=== PATIENT | female | born 1995 | race Caucasian/White ===

== ENCOUNTER 2021-04-18 08:00 | Outpatient (CLI) | payer OTHER | END 2021-04-18 08:30 | disposition home or self-care (01) | LOC: PPH VACUNA 08:00 | PROVIDERS: ATTEND Emergency Medicine Pediatric Emergency Medicine | DX: Z23 Encounter for immunization (principal) ==

== ENCOUNTER 2021-05-25 08:14 | Emergency (ER) | payer OTHER ==
[~2021-05-25] VITALS: Ht 172.7 cm; Wt 59.0 kg
== END 2021-05-25 11:53 | disposition home or self-care (01) ==
LOC: ER 08:14
DX: B34.9 Viral infection, unspecified (principal); J45.998 Other asthma; Z20.822 Contact with and (suspected) exposure to COVID-19

== ENCOUNTER 2021-06-07 07:50 | Outpatient (CLI) | payer OTHER | END 2021-06-07 08:15 | disposition home or self-care (01) | LOC: PPH VACUNA 07:50 | PROVIDERS: ATTEND Emergency Medicine Pediatric Emergency Medicine | DX: Z23 Encounter for immunization (principal) ==

== ENCOUNTER 2021-10-16 13:02 | Emergency (ER) | payer OTHER ==
[~2021-10-16] VITALS: Ht 172.7 cm; Wt 63.5 kg
== END 2021-10-16 14:49 | disposition home or self-care (01) ==
LOC: ER 13:02
DX: Z77.21 Contact with and (suspected) exposure to potentially hazardous body fluids (principal); Z88.8 Allergy status to other drugs, medicaments and biological substances

== ENCOUNTER 2022-01-31 08:00 | Outpatient (CLI) | payer OTHER | END 2022-01-31 08:05 | disposition home or self-care (01) | LOC: PPH VACUNA 08:00 | PROVIDERS: ATTEND Emergency Medicine Pediatric Emergency Medicine | DX: Z23 Encounter for immunization (principal) ==

== ENCOUNTER 2022-02-09 07:51 | Outpatient (CLI) | payer OTHER | END 2022-02-09 09:14 | disposition home or self-care (01) | LOC: LAB 07:51 | DX: Z20.828 Contact with and (suspected) exposure to other viral communicable diseases (principal); Z03.818 Encounter for observation for suspected exposure to other biological agents ruled out; R06.02 Shortness of breath; R50.9 Fever, unspecified ==

== ENCOUNTER → 2022-06-27 | Outpatient (CLI) | payer OTHER | END | disposition home or self-care (01) | LOC: RAD 14:08 | DX: M99.01 Segmental and somatic dysfunction of cervical region (principal); M99.02 Segmental and somatic dysfunction of thoracic region; M99.03 Segmental and somatic dysfunction of lumbar region; M99.04 Segmental and somatic dysfunction of sacral region; M99.05 Segmental and somatic dysfunction of pelvic region ==

== ENCOUNTER 2022-07-29 14:10 | Emergency (ER) | payer OTHER ==
[~2022-07-29] VITALS: Ht 172.7 cm; Wt 65.3 kg
== END 2022-07-29 18:44 | disposition home or self-care (01) ==
LOC: ER 14:10
DX: J06.9 Acute upper respiratory infection, unspecified (principal); R10.9 Unspecified abdominal pain; Z20.822 Contact with and (suspected) exposure to COVID-19; Z88.8 Allergy status to other drugs, medicaments and biological substances

== ENCOUNTER 2022-09-16 08:06 | Emergency (ER) | payer OTHER ==
[~2022-09-16] VITALS: Ht 167.6 cm; Wt 66.7 kg
== END 2022-09-16 08:58 | disposition home or self-care (01) ==
LOC: ER 08:06
DX: S61.042A Puncture wound with foreign body of left thumb without damage to nail, initial encounter (principal); Z88.8 Allergy status to other drugs, medicaments and biological substances; X58.XXXA Exposure to other specified factors, initial encounter; Y92.230 Patient room in hospital as the place of occurrence of the external cause

== ENCOUNTER 2023-02-08 10:48 | Emergency (ER) | payer OTHER ==
[~2023-02-08] VITALS: Ht 172.7 cm; Wt 63.5 kg
== END 2023-02-08 16:17 ==
LOC: ER 10:49
DX: S93.492A Sprain of other ligament of left ankle, initial encounter (principal); W19.XXXA Unspecified fall, initial encounter; Y93.89 Activity, other specified; Y92.89 Other specified places as the place of occurrence of the external cause; Y99.8 Other external cause status; Z88.9 Allergy status to unspecified drugs, medicaments and biological substances

== ENCOUNTER 2023-03-24 06:27 | Emergency (ER) | payer OTHER ==
[~2023-03-24] VITALS: Ht 172.7 cm; Wt 67.1 kg
== END 2023-03-24 08:58 | disposition home or self-care (01) ==
LOC: ER 06:27
DX: R51.9 Headache, unspecified (principal); Z88.8 Allergy status to other drugs, medicaments and biological substances

== ENCOUNTER 2023-04-13 18:50 | Emergency (ER) | payer OTHER ==
[~2023-04-13] VITALS: Ht 172.7 cm; Wt 67.1 kg
[2023-04-13 20:04] LABS: HEMATOCRIT 38.7 % (36.0-45.00); HEMOGLOBIN 12.9 g/dL (12.0-15.00); MEAN CELL VOLUME 86.6 fL (80.00-100.00); MEAN CORPUSCULAR HEMOGLOBIN 28.9 pg (27.00-32.0); MEAN CORPUSCULAR HGB CONC 33.4 g/dl (32.0-36.0); PLATELET COUNT 291 K/uL (150-450); RED BLOOD COUNT 4.47 M/uL (4.00-6.00); RED CELL DISTRIBUTION WIDTH 13.9 % (11.5-14.5)
[2023-04-13 20:19] LABS: ALBUMIN 4.2 gm/dL (3.4-5.0); BILIRUBIN TOTAL 0.61 mg/dL (0.3-1.2); CALCIUM 9.9 mg/dL (8.5-10.1); CREATININE SERUM 0.8 mg/dL (0.55-1.02); GFR 86.7; GLOBULINA 3.5 G/DL (2.4-3.5); POTASSIUM 3.93 mEq/L (3.5-5.1); TOTAL PROTEIN 7.7 gm/dL (6.4-8.2)
== END 2023-04-13 21:41 | disposition home or self-care (01) ==
LOC: ER 18:50
PROVIDERS: General Practice
DX: B34.9 Viral infection, unspecified (principal); Z88.8 Allergy status to other drugs, medicaments and biological substances

== ENCOUNTER 2023-05-07 13:39 | Emergency (ER) | payer OTHER ==
[~2023-05-07] VITALS: Ht 170.2 cm; Wt 68.0 kg
[2023-05-07 16:24] LABS: HEMATOCRIT 37.2 % (36.0-45.00); HEMOGLOBIN 12.6 g/dL (12.0-15.00); MEAN CELL VOLUME 87.9 fL (80.00-100.00); MEAN CORPUSCULAR HEMOGLOBIN 29.7 pg (27.00-32.0); MEAN CORPUSCULAR HGB CONC 33.8 g/dl (32.0-36.0); PLATELET COUNT 276 K/uL (150-450); RED BLOOD COUNT 4.23 M/uL (4.00-6.00); RED CELL DISTRIBUTION WIDTH 13.6 % (11.5-14.5)
[2023-05-07 16:44] LABS: CALCIUM 9.7 mg/dL (8.5-10.1); CREATININE SERUM 0.65 mg/dL (0.55-1.02); GFR 110.18; POTASSIUM 3.66 mEq/L (3.5-5.1)
[2023-05-07 16:48] LABS: PH,URINE 5.5 (5.0-8.0); URINE APPEARANCE Clear; URINE BILIRRUBIN Negative (NEGATIVE); URINE BLOOD Negative; URINE COLOR Yellow; URINE GLUCOSE Negative (NEGATIVE); URINE LEUKOCYTE Negative; URINE NITRATE Negative; URINE PROTEIN Negative (NEGATIVE); URINE UROBILINOGEN 0.2 E.U./dl
[2023-05-07 16:52] LABS: URINE BACTERIA 17.6 uL (0.0-1933); URINE EPITHELIAL CELLS 2.6 uL (0.0-38.8)
[2023-05-07 16:57] LABS: URINE RBC 1.1 uL (0.0-20.8); URINE WBC 1.2 uL (0.0-23.2)
[2023-05-07] MEDS ORDERED: INTESTINEX680 M1 PO (17:39)
[2023-05-07] MEDS ORDERED: ONDANSETRON HCL4 MG PO (17:39)
[2023-05-07] MEDS ORDERED: PEPCID AC20 MG PO (17:39)
[2023-05-07] MEDS ORDERED: DICY20TA PO ×2 (17:39→17:44)
== END 2023-05-07 18:08 | disposition home or self-care (01) ==
LOC: ER 13:39
PROVIDERS: Nurse Practitioner Family
DX: K52.89 Other specified noninfective gastroenteritis and colitis (principal); R11.10 Vomiting, unspecified; R19.7 Diarrhea, unspecified; Z88.8 Allergy status to other drugs, medicaments and biological substances; D68.09 Other von Willebrand disease
CPT/HCPCS: 36415; 96365; 96366; 99284; J2405; J3490; J7030